=== PATIENT | female | born 1995 | race Caucasian/White ===

== ENCOUNTER 2016-10-13 23:07 | Emergency (ER) | payer SELFPAY ==
[~2016-10-13] VITALS: Wt 72.0 kg
[2016-10-14] MEDS ORDERED: IBUP-1542 PO (01:09)
--- NOTE | 2016-10-14 01:33 | ERD ---
ER Documentation Chief Complaint Date/Time DATE: 10/14/16 TIME: 01:22 Chief Complaint BACK/BILAT LEG/RIGHT ARM PAIN S/P FALL OFF 2 STEP LATTER AT WORK. HPI 21-year-old female presented to ED after falling at work. Patient stated that she was getting off a two-step ladder when she misstepped, and fell backwards. She landed on her sacrum. Complaining pain in the sacral region. Patient also twisted her left ankle during the fall. Complaining of pain in the lateral aspect of the left ankle. She was able to bear weight and ambulate without difficulty. Denies hitting her head in the fall. Denies any other injuries. ROS All systems reviewed and are negative except as per history of present illness. Medications Home Meds Active Scripts Ibuprofen* (Motrin*) 600 Mg Tab, 600 MG PO Q6H Y for PAIN AND OR ELEVATED TEMP, #30 TAB Prov:REYNALDO MOTA Sebastián. 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 Awake, alert, and conversant, in no apparent distress Skin: Warm and dry Head: Normocephalic, atraumatic without palpable deformities Eyes: Pupils equal, round, and reactive to light. Extraocular movements intact. No periorbital ecchymosis or step-off Neck: No midline point tenderness, step-off, or deformity to firm palpation of posterior cervical spine. Trachea midline. Carotids equal. No masses. No JVD. Full range of motion of the neck without limitation or pain Chest: No surface trauma. Nontender without crepitus or deformity. No palpable subcutaneous air. Lungs have good tidal volume, lungs clear to auscultate bilaterally Heart: Regular rate and rhythm. No murmur, rub, or gallop Back: No contusions, ecchymosis, or abrasions are noted. Muscle spasm the right sacral region noted. Nontender without step-off or deformity to firm midline palpation. No CVA tenderness or flank ecchymosis Extremities: No surface trauma. Full range of motion without limitation or pain. Good strength in all extremities. Sensation to light touch intact. All peripheral pulses are intact and equal. Lateral left ankle tender over the anterior tibiofibular ligament. No bilateral medial leg tenderness. No navicular tenderness. No fifth metatarsal tenderness. Neuro: Alert and oriented 4, GCS 15, cranial nerves II through XII intact. Motor and sensory exam is nonfocal. Reflexes are symmetric Procedures/MDM Well-appearing 21-year-old female presented ED with right sacral pain and left ankle pain after falling at work. Patient does not have any midline spinal tenderness. I doubt spinal fracture, subluxation, or disc herniation. I doubt spinal epidural abscess, cauda equina syndrome. Patient appears to have muscle spasm secondary to the fall. I do not feel x-ray or CT imaging is necessary. Patient is [place] ankle's rule negative, x-ray is not indicated. Patient likely to have ankle sprain rather than fracture or dislocation. The area of injury was immobilized with an Denis wrap. Patient was noted to be comfortable and neurovascularly intact both before and after the immobilization. Patient appears well, stable for discharge and outpatient management. Medical decision making shared with patient and family. Education provided to patient and family. Patient and family expressed understanding of the plan. Medications on discharge: Ibuprofen. Follow-up: Primary care provider in 2-3 days or return to ED if worse. Disclaimer: Inadvertent spelling and grammatical errors are likely due to EHR/ dictation software use and do not reflect on the overall quality of patient care. Also, please note that the electronic time recorded on this note does not necessarily reflect the actual time of the patient encounter. Departure Diagnosis: Primary Impression: Fall with no significant injury Encounter type: initial encounter Qualified Code: W19.XXXA - Fall with no significant injury, initial encounter Additional Impressions: Left ankle sprain Encounter type: initial encounter Involved ligament of ankle: tibiofibular ligament Qualified Code: S93.432A - Sprain of tibiofibular ligament of left ankle, initial encounter Back spasm Condition: Stable Patient Instructions: Treating Ankle Sprains, Back Spasm, No Trauma Referrals: [facility] YOU HAVE RECEIVED A MEDICAL SCREENING EXAM AND THE RESULTS INDICATE THAT YOU DO NOT HAVE A CONDITION THAT REQUIRES URGENT TREATMENT IN THE EMERGENCY DEPARTMENT. FURTHER EVALUATION AND TREATMENT OF YOUR CONDITION CAN WAIT UNTIL YOU ARE SEEN IN YOUR DOCTORS OFFICE WITHIN THE NEXT 1-2 DAYS. IT IS YOUR RESPONSIBILITY TO MAKE AN APPOINTMENT FOR FOLOW-UP CARE. IF YOU HAVE A PRIMARY DOCTOR --you should call your primary doctor and schedule an appointment IF YOU DO NOT HAVE A PRIMARY DOCTOR YOU CAN CALL OUR PHYSICIAN REFERRAL HOTLINE AT IF YOU CAN NOT AFFORD TO SEE A PHYSICIAN YOU CAN CHOSE FROM THE FOLLOWING [facility] [address] [facility]. [facility] [address] [facility] [facility] [address] [facility] [facility] [address] [facility] [address]. [facility] [address] [facility]. [facility]. [address] Additional Instructions: Call your primary care doctor TOMORROW for an appointment during the next 2-3 days.See the doctor sooner or return here if your condition worsens before your appointment time. REYNALDO MOTA NP Oct 14, 2016 01:32
== END 2016-10-14 01:54 | disposition home or self-care (01) ==
LOC: FTE 23:07
DX: S93.432A Sprain of tibiofibular ligament of left ankle, initial encounter (principal); M62.830 Muscle spasm of back; W10.9XXA Fall (on) (from) unspecified stairs and steps, initial encounter; Y92.89 Other specified places as the place of occurrence of the external cause
CPT/HCPCS: 99283